=== PATIENT | male | born 1995 | race Caucasian/White ===

== ENCOUNTER 2023-12-20 15:10 | Emergency (ER) | payer SELFPAY ==
[~2023-12-20] VITALS: Ht 170.2 cm; Wt 85.0 kg
[2023-12-20 15:41] VITALS: O2SAT 99
[2023-12-20] MEDS ORDERED: KETOROLAC 30MG/ML VIAL IV ONE (16:00)
[2023-12-20] MEDS: FENTANYL CITRATE/PF 50MCG/ML 2ML VIAL IV ONE (16:36)
[2023-12-20 18:00] VITALS: BP 128/77; PULSE 76; RESP 18; TEMP 98.8
== END 2023-12-20 19:42 | disposition home or self-care (01) ==
LOC: ER 15:10
DX: S83.014A Lateral dislocation of right patella, initial encounter (principal); X58.XXXA Exposure to other specified factors, initial encounter; Y93.89 Activity, other specified; Y92.89 Other specified places as the place of occurrence of the external cause; Y99.8 Other external cause status
CPT/HCPCS: 73560; 27840; 99152; 99285; J3010; Z7610; L1830; 96374; 99283